=== PATIENT | female | born 1995 | race Caucasian/White ===

== ENCOUNTER 2020-11-14 13:09 | Emergency (ER) | payer OTHER ==
[~2020-11-14] VITALS: Ht 154.9 cm; Wt 56.7 kg
--- NOTE | 2020-11-14 13:43 | NUR ---
Pt states she had/has UTI and was prescribed levaquin, has taken 3 doses, c/o small bruises on her fingers. Also c/o dizziness and back pain. Pt denies CP, SOB, n/v, no distress noted.
[2020-11-14 14:20] LABS: HEMATOCRIT 44.3 % (31.2-41.9); MEAN CORPUSCULAR HEMOGLOBIN 29.8 uug (24.7-32.8); MEAN CORPUSCULAR VOLUME 89.5 fL (75.5-95.3); PLATELET COUNT (AUTO) 266 K/uL (179-408)
[2020-11-14 14:24] LABS: *URINE HCG, QUAL NEGATIVE (NEGATIVE)
[2020-11-14 14:25] LABS: *BILIRUBIN,URIN NEGATIVE (NEGATIVE); *BLOOD, URINE NEGATIVE (NEGATIVE); *CLARITY,URINE CLEAR (CLEAR); *COLOR,URINE YELLOW (YELLOW); *KETONES,URINE TRACE (NEGATIVE); *UROBILINOGEN,URINE 0.2 E.U./dl (NORMAL); LEUKOCYTE ESTERASE ,URINE NEGATIVE (NEGATIVE); NITRITE, URINE NEGATIVE (NEGATIVE); PH,URINE 6.5 (5.0-8.0); UGLUCOSE NEGATIVE (NEGATIVE)
[2020-11-14 14:33] LABS: CREATININE 0.8 mg/dL (0.6-1.3); POTASSIUM 3.7 mmol/L (3.5-5.1)
[2020-11-14 14:37] LABS: BACTERIA,URINE FEW /HPF (NONE SEEN); SQUAMOUS EPITHELIAL CELL,UR MODERATE /HPF (NONE SEEN); URINE AMORPHOUS URATE FEW /HPF
[2020-11-14 14:38] LABS: MUCUS,URINE FEW /LPF (0-FEW)
[2020-11-14 14:39] LABS: BILIRUBIN,DIRECT 0.1 mg/dL (0.0-0.2); BILIRUBIN,TOTAL 0.6 mg/dL (0.2-1.0); TOTAL PROTEIN, SERUM 7.9 g/dL (6.4-8.2)
[2020-11-14] MEDS ORDERED: NITR100C6 PO (16:06)
[2020-11-14 16:19] VITALS: BP 125/72
--- NOTE | 2020-11-14 16:19 | NUR ---
Gave pt RX and d/c instructions, pt verbalized understanding. Gave test results.
== END 2020-11-14 16:21 | disposition home or self-care (01) ==
LOC: ER 13:09
DX: N39.0 Urinary tract infection, site not specified (principal); R23.3 Spontaneous ecchymoses; M25.519 Pain in unspecified shoulder
CPT/HCPCS: 36415; 84703; 85025; 87086; 93005; A4663